=== PATIENT | female | born 2000 | race Caucasian/White ===

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

== ENCOUNTER → 2022-06-09 | Outpatient (REF) | payer OTHER, MEDICAID ==
[2022-06-09 18:04] LABS: ALBUMIN 3.2 GM/DL (3.2-5.2); ALT/SGPT 14 U/L (12-78); AMYLASE 33 U/L (25-115); BILIRUBIN,TOTAL 0.4 MG/DL (0.2-1.0); BLOOD UREA NITROGEN 11 MG/DL (7-18); CALCIUM LEVEL 9.1 MG/DL (8.5-10.1); CARBON DIOXIDE LEVEL 28 MEQ/L (21-32); CHLORIDE LEVEL 108 MEQ/L (98-107); CREATININE FOR GFR 0.62 MG/DL (0.55-1.30); GLUCOSE, FASTING 91 MG/DL (70-100); LIPASE 127 U/L (73-393); POTASSIUM SERUM 3.9 MEQ/L (3.5-5.1); SODIUM LEVEL 140 MEQ/L (136-145); TOTAL PROTEIN 7.5 GM/DL (6.4-8.2)
== END ==
LOC: M LAB REF 16:35
PROVIDERS: ATTEND Nurse Practitioner Family
DX: R10.30 Lower abdominal pain, unspecified (principal)

== ENCOUNTER → 2022-07-28 | Outpatient (REF) | LOC: M EMP 14:52 | PROVIDERS: ATTEND Family Medicine | DX: Z11.52 Encounter for screening for COVID-19 (principal) ==

== ENCOUNTER → 2022-08-07 | Outpatient (REF) | LOC: M EMP 14:37 | PROVIDERS: ATTEND Family Medicine | DX: Z11.52 Encounter for screening for COVID-19 (principal) ==

== ENCOUNTER 2022-11-20 04:50 | Emergency (ER) | payer MEDICAID, OTHER ==
[~2022-11-20] VITALS: Ht 160 cm; Wt 68.2 kg
[2022-11-20] MEDS ORDERED: NS 1,000 ML IV ONE (06:40)
[2022-11-20] MEDS ORDERED: ONDANSETRON 4MG 2ML VIAL IV ONE (06:40)
[2022-11-20] MEDS ORDERED: KETOROLAC 30 MG/ML 1ML VIAL IV ONE (06:40)
[2022-11-20 07:16] LABS: BASO % 0.4 % (0.0-1.0); EOS # 0.1 10^3/uL (0.0-0.5); EOS % 1.5 % (0.0-3.0); HEMOGLOBIN 11.6 g/dl (12.0-15.5); LYMPH % 24.2 % (24.0-44.0); MEAN CORPUSCULAR HEMOGLOBIN 27.9 pg (27.0-33.0); MEAN CORPUSCULAR HGB CONC 33.1 g/dl (32.0-36.5); MEAN CORPUSCULAR VOLUME 84.1 fl (80.0-96.0); MONO # 0.8 10^3/uL (0.0-0.8); MONO % 9.8 % (2.0-8.0); NEUTROPHILS # 5.2 10^3/uL (1.5-8.5); NEUTROPHILS % 63.9 % (36.0-66.0); PLATELET COUNT, AUTOMATED 315 10^3/uL (150-450); RED BLOOD COUNT 4.16 10^6/uL (4.00-5.40); WHITE BLOOD COUNT 8.1 10^3/uL (4.0-10.0)
[2022-11-20 07:41] LABS: ALBUMIN 3.2 G/DL (3.2-5.2); ALKALINE PHOSPHATASE 67 U/L (46-116); ALT/SGPT 10 U/L (7.0-40); AST/SGOT 11 U/L (<34); BILIRUBIN,TOTAL 0.7 MG/DL (0.3-1.2); BLOOD UREA NITROGEN 13 MG/DL (9-23); CALCIUM LEVEL 8.7 MG/DL (8.5-10.1); CARBON DIOXIDE LEVEL 26 MMOL/L (20-31); CHLORIDE LEVEL 103 MMOL/L (98-107); CREATININE FOR GFR 0.59 MG/DL (0.55-1.30); GLUCOSE, FASTING 88 MG/DL (60-100); POTASSIUM SERUM 3.9 MMOL/L (3.5-5.1); SODIUM LEVEL 137 MMOL/L (136-145); TOTAL PROTEIN 6.9 G/DL (5.7-8.2)
[2022-11-20] MEDS ORDERED: ISOVUE-370 76% 100ML VIAL As Ordered ONE (07:49)
[2022-11-20] MEDS ORDERED: CIPROFLOXACIN 500MG TABLET PO ONE (10:10)
[2022-11-20] MEDS ORDERED: metroNIDAZOLE (FLAGYL) 500MG TABLET PO ONE (10:10)
[2022-11-20] MEDS ORDERED: DICY10CA13 PO (10:19)
[2022-11-20] MEDS ORDERED: CIPR-249 PO (10:19)
[2022-11-20] MEDS ORDERED: ONDA4TAB6 PO (10:19)
[2022-11-20] MEDS ORDERED: METR-265 PO (10:19)
[2022-11-20 10:29] VITALS: BP 116/60
== END 2022-11-20 10:37 | disposition home or self-care (01) ==
LOC: M ED 04:50
DX: K50.013 Crohn's disease of small intestine with fistula (principal)
CPT/HCPCS: 74177; 80053; 81001; 84702; 85025; 87088; 87186; 96374; 96375; 99284; J1885; J2405; Q9967

== ENCOUNTER → 2023-07-13 | Outpatient (REF) ==
[~2023-07-13] MED LIST changes: +CIPR-249 PO; +DICY-61 PO; +METR-265 PO
== END ==
LOC: M EMP 07-12 11:30
PROVIDERS: ATTEND Family Medicine
DX: Z11.52 Encounter for screening for COVID-19 (principal)

== ENCOUNTER 2023-07-29 03:16 | Emergency (ER) | payer OTHER ==
[~2023-07-29] VITALS: Ht 162.6 cm; Wt 58.7 kg
[2023-07-29 05:14] LABS: BASO % 0.4 % (0.0-1.0); EOS # 0.2 10^3/uL (0.0-0.5); EOS % 1.6 % (0.0-3.0); HEMATOCRIT 36.6 % (36.0-47.0); HEMOGLOBIN 11.9 g/dl (12.0-15.5); LYMPH # 3.1 10^3/uL (1.5-5.0); MEAN CORPUSCULAR HEMOGLOBIN 27.9 pg (27.0-33.0); MEAN CORPUSCULAR HGB CONC 32.5 g/dl (32.0-36.5); MEAN CORPUSCULAR VOLUME 85.9 fl (80.0-96.0); MONO # 0.7 10^3/uL (0.0-0.8); NEUTROPHILS % 59.8 % (36.0-66.0); PLATELET COUNT, AUTOMATED 334 10^3/uL (150-450); RED BLOOD COUNT 4.26 10^6/uL (4.00-5.40)
[2023-07-29 05:24] LABS: HCG, SERUM QUALITATIVE NEGATIVE (NEGATIVE)
[2023-07-29 05:26] LABS: LIPASE 54 U/L (12-53)
[2023-07-29 05:28] LABS: ALBUMIN 3.8 G/DL (3.2-5.2); ALKALINE PHOSPHATASE 69 U/L (46-116); ALT/SGPT 11 U/L (7.0-40); AST/SGOT 13 U/L (<34); BILIRUBIN,DIRECT 0.1 MG/DL (<0.4); BILIRUBIN,TOTAL 0.3 MG/DL (0.3-1.2); BLOOD UREA NITROGEN 12 MG/DL (9-23); CALCIUM LEVEL 9.3 MG/DL (8.5-10.1); CARBON DIOXIDE LEVEL 26 MMOL/L (20-31); CHLORIDE LEVEL 108 MMOL/L (98-107); CREATININE FOR GFR 0.58 MG/DL (0.55-1.30); ERYTHROCYTE SEDIMENTATION RATE 38 mm/hr (0-20); GLOMERULAR FILTRATION RATE > 60.0 (>60); GLUCOSE, FASTING 94 MG/DL (60-100); POTASSIUM SERUM 3.9 MMOL/L (3.5-5.1); SODIUM LEVEL 141 MMOL/L (136-145); TOTAL PROTEIN 7.6 G/DL (5.7-8.2)
[2023-07-29] MEDS ORDERED: METOCLOPRAMIDE INJ 10MG/2ML VIAL IV ONE (06:45)
[2023-07-29] MEDS ORDERED: methylPREDNISolone 125MG 2ML VIAL IV ONE (06:45)
[2023-07-29] MEDS ORDERED: NS 1,000 ML IV ONE (06:45)
[2023-07-29] MEDS ORDERED: KETOROLAC 30 MG/ML 1ML VIAL IV ONE (07:40)
[2023-07-29 08:15] VITALS: BP 117/69; TEMP 98.2; O2SAT 98
[2023-07-29] MEDS ORDERED: PRED20TA PO (08:20)
[2023-07-29] MEDS ORDERED: REGL10TA6 PO (08:20)
== END 2023-07-29 08:27 | disposition home or self-care (01) ==
LOC: M ED 03:16
DX: K50.919 Crohn's disease, unspecified, with unspecified complications (principal); Z79.899 Other long term (current) drug therapy; Z79.2 Long term (current) use of antibiotics
CPT/HCPCS: 80048; 80076; 83690; 84703; 85025; 85652; 86140; 93041; 96374; 96375; 99284; J1885; J2765; J2930

== ENCOUNTER → 2023-09-17 | Outpatient (REF) ==
[~2023-09-17] MED LIST changes: +REGL10TA6 PO
== END ==
LOC: M EMP 09:56
PROVIDERS: ATTEND Family Medicine
DX: Z53.9 Procedure and treatment not carried out, unspecified reason (principal)

== ENCOUNTER 2024-01-07 21:36 | Emergency (ER) | payer OTHER ==
[~2024-01-07] VITALS: Ht 160 cm; Wt 68.6 kg
[~2024-01-07 21:36] MED LIST changes: +ONDA-282 PO; -ONDA4TAB6 PO
[2024-01-07 23:25] LABS: HCG, SERUM QUALITATIVE NEGATIVE (NEGATIVE)
[2024-01-07] MEDS: KETOROLAC 30 MG/ML 1ML VIAL IV ONE (23:51)
[2024-01-07] MEDS: NS 1,000 ML IV ONE (23:51)
[2024-01-08] MEDS ORDERED: ISOVUE-370 76% 100ML VIAL As Ordered ONE (00:15)
[2024-01-08 00:21] LABS: BASO % 0.2 % (0.0-1.0); EOS # 0.1 10^3/uL (0.0-0.5); EOS % 1.4 % (0.0-3.0); HEMOGLOBIN 12.1 g/dl (12.0-15.5); LYMPH # 1.7 10^3/uL (1.5-5.0); LYMPH % 18.3 % (24.0-44.0); MEAN CORPUSCULAR HEMOGLOBIN 28.9 pg (27.0-33.0); MEAN CORPUSCULAR HGB CONC 33.6 g/dl (32.0-36.5); MEAN CORPUSCULAR VOLUME 86.1 fl (80.0-96.0); MONO # 0.7 10^3/uL (0.0-0.8); MONO % 7.4 % (2.0-8.0); NEUTROPHILS # 6.6 10^3/uL (1.5-8.5); NEUTROPHILS % 72.5 % (36.0-66.0); PLATELET COUNT, AUTOMATED 314 10^3/uL (150-450); RED BLOOD COUNT 4.18 10^6/uL (4.00-5.40); WHITE BLOOD COUNT 9.1 10^3/uL (4.0-10.0)
[2024-01-08 00:36] LABS: ERYTHROCYTE SEDIMENTATION RATE 48 mm/hr (0-20)
[2024-01-08] MEDS ORDERED: CEPH500C PO (03:22)
[2024-01-08] MEDS ORDERED: PRED20TA PO (03:22)
[2024-01-08] MEDS: methylPREDNISolone 125MG 2ML VIAL IV ONE (03:52)
[2024-01-08] MEDS: CEPHALEXIN 500 MG CAP PO ONE (03:52)
[2024-01-08 04:00] VITALS: BP 115/60; TEMP 97.8; O2SAT 99
== END 2024-01-08 04:09 | disposition home or self-care (01) ==
LOC: M ED 21:36
DX: K50.90 Crohn's disease, unspecified, without complications (principal); N39.0 Urinary tract infection, site not specified; Z79.899 Other long term (current) drug therapy
CPT/HCPCS: 74177; 80047; 81001; 84703; 85025; 85652; 86140; 87088; 87186; 96361; 96374; 96375; 99284; J1885; J2919; Q9967

== ENCOUNTER → 2024-05-02 | Outpatient (CLI) | payer OTHER ==
[~2024-05-02] MED LIST changes: +CEPH500C PO
[2024-05-02 16:06] LABS: BASO % 0.5 % (0.0-1.0); EOS # 0.3 10^3/uL (0.0-0.5); EOS % 3.9 % (0.0-3.0); HEMATOCRIT 33.1 % (36.0-47.0); HEMOGLOBIN 10.9 g/dl (12.0-15.5); LYMPH # 2.3 10^3/uL (1.5-5.0); LYMPH % 34.1 % (24.0-44.0); MEAN CORPUSCULAR HEMOGLOBIN 28.6 pg (27.0-33.0); MEAN CORPUSCULAR HGB CONC 32.9 g/dl (32.0-36.5); MEAN CORPUSCULAR VOLUME 86.9 fl (80.0-96.0); MONO # 0.4 10^3/uL (0.0-0.8); MONO % 5.9 % (2.0-8.0); NEUTROPHILS # 3.7 10^3/uL (1.5-8.5); NEUTROPHILS % 55.4 % (36.0-66.0); PLATELET COUNT, AUTOMATED 302 10^3/uL (150-450); RED BLOOD COUNT 3.81 10^6/uL (4.00-5.40); WHITE BLOOD COUNT 6.6 10^3/uL (4.0-10.0)
[2024-05-02 16:11] LABS: ERYTHROCYTE SEDIMENTATION RATE 38 mm/hr (0-20)
[2024-05-02 16:39] LABS: ALBUMIN 3.4 G/DL (3.2-5.2); ALKALINE PHOSPHATASE 83 U/L (46-116); ALT/SGPT 48 U/L (7.0-40); AST/SGOT 14 U/L (<34); BILIRUBIN,TOTAL 0.2 MG/DL (0.3-1.2); BLOOD UREA NITROGEN 11 MG/DL (9-23); CALCIUM LEVEL 9.1 MG/DL (8.5-10.1); CARBON DIOXIDE LEVEL 28 MMOL/L (20-31); CHLORIDE LEVEL 108 MMOL/L (98-107); CREATININE FOR GFR 0.82 MG/DL (0.55-1.30); GLOMERULAR FILTRATION RATE > 60.0 (>60); GLUCOSE, FASTING 88 MG/DL (60-100); IRON (FE) 49 UG/DL (50-170); POTASSIUM SERUM 4.1 MMOL/L (3.5-5.1); SODIUM LEVEL 140 MMOL/L (136-145); TOTAL IRON BINDING CAPACITY 306 UG/DL (250-425); TOTAL PROTEIN 7.4 G/DL (5.7-8.2)
[2024-05-02 16:41] LABS: FOLATE 10.97 NG/ML (>5.4); VITAMIN B12 LEVEL 409 PG/ML (211-911)
== END ==
LOC: M LAB 15:35
PROVIDERS: ATTEND Pediatrics
DX: K50.90 Crohn's disease, unspecified, without complications (principal)

== ENCOUNTER → 2024-05-12 | Outpatient (REF) | payer OTHER ==
[2024-05-12 13:53] LABS: BASO % 0.6 % (0.0-1.0); EOS # 0.2 10^3/uL (0.0-0.5); EOS % 3.7 % (0.0-3.0); HEMATOCRIT 35.8 % (36.0-47.0); HEMOGLOBIN 11.6 g/dl (12.0-15.5); LYMPH # 2.2 10^3/uL (1.5-5.0); LYMPH % 34.6 % (24.0-44.0); MEAN CORPUSCULAR HEMOGLOBIN 28.2 pg (27.0-33.0); MEAN CORPUSCULAR HGB CONC 32.4 g/dl (32.0-36.5); MEAN CORPUSCULAR VOLUME 86.9 fl (80.0-96.0); MONO # 0.5 10^3/uL (0.0-0.8); MONO % 8.3 % (2.0-8.0); NEUTROPHILS # 3.4 10^3/uL (1.5-8.5); NEUTROPHILS % 52.5 % (36.0-66.0); PLATELET COUNT, AUTOMATED 291 10^3/uL (150-450); RED BLOOD COUNT 4.12 10^6/uL (4.00-5.40); WHITE BLOOD COUNT 6.4 10^3/uL (4.0-10.0)
[2024-05-12 14:41] LABS: ERYTHROCYTE SEDIMENTATION RATE 35 mm/hr (0-20)
== END ==
LOC: M LAB REF 12:23
PROVIDERS: ATTEND Pediatrics
DX: K50.90 Crohn's disease, unspecified, without complications (principal)

== ENCOUNTER → 2024-11-01 | Outpatient (CLI) | payer OTHER ==
[~2024-11-01] VITALS: Ht 162.6 cm; Wt 68.2 kg
[~2024-11-01] MED LIST changes: +NS (Normal Saline) 0.9% 1,000 ML IV SCH
[2024-11-01 11:45] VITALS: BP 116/64; O2SAT 100
[2024-11-01] MEDS: NS IV ONE (12:49)
[2024-11-01] MEDS: INFLIXIMAB ABDA IV ONE (12:49)
[2024-11-01 13:15] VITALS: BP 106/55; O2SAT 100
[2024-11-01 13:30] VITALS: BP 110/70; O2SAT 98
[2024-11-01 14:00] VITALS: BP 96/55; O2SAT 99
[2024-11-01 14:30] VITALS: BP 100/61; O2SAT 99
[2024-11-01 15:32] VITALS: BP 100/64; O2SAT 99
== END ==
LOC: M INFU 11:33
PROVIDERS: ATTEND Internal Medicine Gastroenterology
DX: K50.90 Crohn's disease, unspecified, without complications (principal)
CPT/HCPCS: 96413; 96415; Q5104

== ENCOUNTER 2024-11-15 12:40 | Outpatient (CLI) | payer OTHER ==
[~2024-11-15] VITALS: Ht 160 cm; Wt 68.1 kg
[2024-11-15 12:35] VITALS: BP 108/61; O2SAT 99
[2024-11-15] MEDS: INFLIXIMAB ABDA IV ONE (13:46)
[2024-11-15] MEDS: NS IV ONE (13:46)
[2024-11-15 14:15] VITALS: BP 96/57; O2SAT 100
[2024-11-15 14:45] VITALS: BP 100/64; O2SAT 100
[2024-11-15 15:15] VITALS: BP_SYST 102; BP_SYST 115; BP_DIAS 57; BP_DIAS 59; O2SAT 100; O2SAT 99
== END 2024-11-15 15:50 ==
LOC: M INFU 12:40
PROVIDERS: ATTEND Internal Medicine Gastroenterology
DX: K50.90 Crohn's disease, unspecified, without complications (principal)
CPT/HCPCS: 96413; 96415; Q5104

== ENCOUNTER → 2024-11-22 | Outpatient (CLI) | payer OTHER ==
[~2024-11-22] MED LIST changes: -NS (Normal Saline) 0.9% 1,000 ML IV SCH
== END ==
LOC: M RAD 16:53
PROVIDERS: ATTEND Internal Medicine Gastroenterology
DX: R10.9 Unspecified abdominal pain (principal)

== ENCOUNTER → 2024-12-13 | Outpatient (CLI) | payer OTHER ==
[~2024-12-13] VITALS: Ht 162.6 cm; Wt 67.2 kg
[~2024-12-13] MED LIST changes: +NS (Normal Saline) 0.9% 1,000 ML IV SCH
[2024-12-13 12:05] VITALS: BP 115/58; O2SAT 100
[2024-12-13] MEDS: NS IV ONE (12:54)
[2024-12-13] MEDS: INFLIXIMAB ABDA IV ONE (12:54)
[2024-12-13 13:15] VITALS: BP 108/60; O2SAT 100
[2024-12-13 13:45] VITALS: BP 110/59; O2SAT 100
[2024-12-13 14:00] VITALS: BP 111/62; O2SAT 99
[2024-12-13 14:45] VITALS: BP 117/57; O2SAT 100
== END ==
LOC: M INFU 11:44
PROVIDERS: ATTEND Internal Medicine Gastroenterology
DX: K50.90 Crohn's disease, unspecified, without complications (principal)
CPT/HCPCS: 96413; 96415; Q5104

== ENCOUNTER 2025-04-04 11:49 | Outpatient (CLI) | payer OTHER ==
[2025-04-04 12:04] VITALS: BP 117/70; O2SAT 100
[2025-04-04] MEDS: NS IV ONE (13:05)
[2025-04-04] MEDS: INFLIXIMAB ABDA IV ONE (13:05)
[2025-04-04 14:10] VITALS: BP 108/71; O2SAT 100
== END 2025-04-04 14:10 | disposition home or self-care (01) ==
LOC: M INFU 11:49
PROVIDERS: ATTEND Internal Medicine Gastroenterology
DX: K50.90 Crohn's disease, unspecified, without complications (principal)
CPT/HCPCS: 96413; Q5104

== ENCOUNTER 2025-06-02 07:52 | Outpatient (CLI) | payer OTHER ==
[~2025-06-02] VITALS: Ht 160 cm; Wt 71.4 kg
[2025-06-02 07:50] VITALS: BP 113/67; O2SAT 99
[~2025-06-02 07:52] MED LIST changes: -NS (Normal Saline) 0.9% 1,000 ML IV SCH
[2025-06-02] MEDS ORDERED: NS (Normal Saline) 0.9% 1,000 ML IV SCH (08:00)
[2025-06-02] MEDS: INFLIXIMAB ABDA IV ONE (09:04)
[2025-06-02] MEDS: NS IV ONE (09:04)
[2025-06-02 09:05] VITALS: BP 110/57; TEMP 97.5; O2SAT 98
[2025-06-02 09:25] VITALS: BP 111/66; TEMP 98.2; O2SAT 99
[2025-06-02 10:05] VITALS: BP 123/58; TEMP 97.9; O2SAT 99
== END 2025-06-02 10:15 ==
LOC: M INFU 07:52
PROVIDERS: ATTEND Internal Medicine Gastroenterology
DX: K50.90 Crohn's disease, unspecified, without complications (principal)
CPT/HCPCS: 96413; Q5104

== ENCOUNTER → 2025-07-03 | Outpatient (CLI) | payer OTHER | LOC: M EKG 15:04 | PROVIDERS: ATTEND Internal Medicine | DX: R00.2 Palpitations (principal); Z53.9 Procedure and treatment not carried out, unspecified reason ==

== ENCOUNTER → 2025-07-21 | Outpatient (CLI) | payer OTHER ==
[2025-07-21 13:27] LABS: PLATELET COUNT, AUTOMATED 325 10^3/uL (150-450)
[2025-07-21 13:54] LABS: ALT/SGPT 14 U/L (7.0-40); AST/SGOT 14 U/L (<34); C REACTIVE PROTEIN QUANTITATIV 0.80 MG/DL (<1.0); CALCIUM LEVEL 9.0 MG/DL (8.5-10.1); CARBON DIOXIDE LEVEL 24 MMOL/L (20-31); CHLORIDE LEVEL 107 MMOL/L (98-107); CREATININE FOR GFR 0.60 MG/DL (0.55-1.30); GLOMERULAR FILTRATION RATE > 90.0 (>60); POTASSIUM SERUM 4.1 MMOL/L (3.5-5.1); SODIUM LEVEL 140 MMOL/L (136-145)
== END ==
LOC: M LAB 12:42
PROVIDERS: ATTEND Student in an Organized Health Care Education/Training Program
DX: K50.00 Crohn's disease of small intestine without complications (principal)

== ENCOUNTER → 2025-07-24 | Outpatient (REF) | payer OTHER | LOC: M LAB REF 14:47 | PROVIDERS: ATTEND Student in an Organized Health Care Education/Training Program | DX: K50.00 Crohn's disease of small intestine without complications (principal) ==

== ENCOUNTER 2025-08-02 10:00 | Outpatient (CLI) | payer OTHER ==
[~2025-08-02] VITALS: Ht 160 cm; Wt 69.5 kg
[~2025-08-02 10:00] MED LIST changes: +ALBUTEROL SULFATE 2.5 MG/0.5 ML INH CONCENTRATE NEB SOLN INH PRN; +EPINEPHrine INJ 1 MG/ML 1ML AMP IM PRN; +NS (Normal Saline) 0.9% 1,000 ML IV SCH; +diphenhydrAMINE 50 MG/ML VIAL IV PRN
[2025-08-02 10:05] VITALS: BP 110/64; O2SAT 100
[2025-08-02] MEDS: VEDOLIZUMAB 300 MG in NS 250 ML IV ONE (10:59)
[2025-08-02 11:45] VITALS: BP 96/55; O2SAT 100
== END 2025-08-02 10:05 | disposition home or self-care (01) ==
LOC: M INFU 10:00
PROVIDERS: ATTEND Student in an Organized Health Care Education/Training Program
DX: K50.90 Crohn's disease, unspecified, without complications (principal)
CPT/HCPCS: 96365; J3380